=== PATIENT | female | born 1965 | race Caucasian/White ===

== ENCOUNTER 2023-09-15 12:07 | Day surgery (SDC) | payer OTHER ==
[2023-09-15] MEDS ORDERED: Depo-Medrol 40 MG/ML IM ONE (12:08)
[2023-09-15] MEDS ORDERED: BUPIVACAINE 0.5% VIAL IJ ONE (12:08)
[2023-09-15] MEDS ORDERED: Lactated Ringers 1,000 ML IV ONE (13:12)
[2023-09-15] MEDS ORDERED: DIPRIVAN 200 MG/20 ML IV ONE (13:53)
--- NOTE | 2023-09-15 14:58 | XRAY ---
Indication: Bilateral SI joint injection. Intraoperative fluoroscopy provided for 16 seconds. 3 digital spot images submitted for interpretation demonstrates posterior needle tips projecting over the expected left and right SI joint. Small amount of contrast injected for needle tip placement. Correlate with intraoperative findings/report.
--- NOTE | 2023-09-15 15:24 | XRAY ---
16 seconds of fluoroscopy was used in surgery for a bilateral sacroiliac joint injection.
== END 2023-09-15 14:15 | disposition home or self-care (01) ==
LOC: SDC-PAIN 12:07
PROVIDERS: ATTEND Psychiatry & Neurology Pain Medicine
DX: M46.1 Sacroiliitis, not elsewhere classified (principal)
CPT/HCPCS: 01992; 27096; 72202; 77002; G0260; J1010; J2704; Q9966

== ENCOUNTER 2023-10-27 12:18 | Day surgery (SDC) | payer OTHER ==
[2023-10-27] MEDS ORDERED: Xylocaine-Mpf 2% 5 Ml Vial IJ ONE (12:19)
[2023-10-27] MEDS ORDERED: DIPRIVAN 200 MG/20 ML IV ONE (14:16)
[2023-10-27] MEDS ORDERED: Lactated Ringers 1,000 ML IV ONE (14:57)
--- NOTE | 2023-10-27 15:23 | XRAY ---
Indication: Bilateral L4-S1 MBB. Intraoperative fluoroscopy provided for 13 seconds. Single digital spot image submitted for interpretation demonstrates posterior needle tips projecting over the expected left and right L4-S1 nerve roots. Correlate with intraoperative findings/report.
--- NOTE | 2023-10-27 15:25 | XRAY ---
13 seconds of fluoroscopy was used in surgery for a bilateral L4-S1 MBB.
== END 2023-10-27 14:44 | disposition home or self-care (01) ==
LOC: SDC-PAIN 12:18
PROVIDERS: ATTEND Psychiatry & Neurology Pain Medicine
DX: M47.816 Spondylosis without myelopathy or radiculopathy, lumbar region (principal)
CPT/HCPCS: 64493; 64494; 72020; 77002; J2704

== ENCOUNTER 2023-12-08 12:18 | Day surgery (SDC) | payer OTHER ==
[2023-12-08] MEDS ORDERED: BUPIVACAINE 0.5% VIAL IJ ONE (12:19)
[2023-12-08] MEDS ORDERED: DIPRIVAN 200 MG/20 ML IV ONE (14:15)
[2023-12-08] MEDS ORDERED: Lactated Ringers 1,000 ML IV ONE (15:02)
--- NOTE | 2023-12-08 15:08 | XRAY ---
Indication: Bilateral L4-S1 MBB. Intraoperative fluoroscopy provided for 10 seconds. Single digital spot image submitted for interpretation demonstrates posterior needle tips projecting over the expected left and right L4-S1 nerve roots. Correlate with intraoperative findings/report.
--- NOTE | 2023-12-08 15:14 | XRAY ---
10 seconds of fluoroscopy was used in surgery for a bilateral L4-S1 MBB.
== END 2023-12-08 14:41 | disposition home or self-care (01) ==
LOC: SDC-PAIN 12:18
PROVIDERS: ATTEND Psychiatry & Neurology Pain Medicine
DX: M47.816 Spondylosis without myelopathy or radiculopathy, lumbar region (principal)
CPT/HCPCS: 64493; 64494; 72020; 77002; J2704

== ENCOUNTER 2023-12-29 07:56 | Day surgery (SDC) | payer OTHER ==
[2023-12-29] MEDS ORDERED: BUPIVACAINE 0.5% VIAL IJ ONE (07:57)
[2023-12-29] MEDS ORDERED: Depo-Medrol 40 MG/ML IM ONE (07:57)
[2023-12-29] MEDS ORDERED: LIDOCAINE HCL 1% 50 MG/5 ML VL PF IJ ONE (07:57)
[2023-12-29] MEDS ORDERED: Lactated Ringers 1,000 ML IV ONE (09:30)
[2023-12-29] MEDS ORDERED: DIPRIVAN 200 MG/20 ML IV ONE (10:02)
--- NOTE | 2023-12-29 11:48 | XRAY ---
Indication: Right L4-S1 RFA. Intraoperative fluoroscopy provided for 22 seconds. 4 digital spot images submitted for interpretation demonstrates posterior needle tips projecting over the expected right L4-S1 nerve roots. Correlate with intraoperative findings/report.
--- NOTE | 2023-12-29 12:04 | XRAY ---
22 seconds of fluoroscopy was used in surgery for a right L4-S1 RFA.
== END 2023-12-29 10:30 ==
LOC: SDC-PAIN 07:56 → EDSTATUS 15:59
PROVIDERS: ATTEND Psychiatry & Neurology Pain Medicine
DX: M47.816 Spondylosis without myelopathy or radiculopathy, lumbar region (principal)
CPT/HCPCS: 64635; 64636; 72100; 77002; J2001; J2704

== ENCOUNTER 2024-01-05 14:12 | Day surgery (SDC) | payer OTHER ==
[2024-01-05] MEDS ORDERED: BUPIVACAINE 0.5% VIAL IJ ONE (14:13)
[2024-01-05] MEDS ORDERED: LIDOCAINE HCL 1% 50 MG/5 ML VL PF IJ ONE (14:13)
[2024-01-05] MEDS ORDERED: Depo-Medrol 40 MG/ML IM ONE (14:13)
[2024-01-05] MEDS ORDERED: Lactated Ringers 1,000 ML IV ONE (15:45)
[2024-01-05] MEDS ORDERED: DIPRIVAN 200 MG/20 ML IV ONE (15:48)
--- NOTE | 2024-01-05 17:10 | XRAY ---
Indication: Left L4-S1 RFA. Intraoperative fluoroscopy provided for 21 seconds. 3 digital spot images submitted for interpretation demonstrates posterior needle tips projecting over the expected left L4-S1 nerve roots. Correlate with intraoperative findings/report.
--- NOTE | 2024-01-05 17:14 | XRAY ---
21 seconds of fluoroscopy was used in surgery for a left L4-S1 RFA.
== END 2024-01-05 16:20 | disposition home or self-care (01) ==
LOC: SDC-PAIN 14:12
PROVIDERS: ATTEND Psychiatry & Neurology Pain Medicine
DX: M47.816 Spondylosis without myelopathy or radiculopathy, lumbar region (principal)
CPT/HCPCS: 64635; 64636; 72100; 77002; J2001; J2704

== ENCOUNTER 2024-02-23 08:46 | Day surgery (SDC) | payer OTHER ==
[2024-02-23] MEDS ORDERED: BUPIVACAINE 0.5% VIAL IJ ONE (08:47)
[2024-02-23] MEDS ORDERED: Depo-Medrol 40 MG/ML IM ONE (08:47)
[2024-02-23] MEDS ORDERED: DIPRIVAN 200 MG/20 ML IV ONE (10:37)
--- NOTE | 2024-02-23 11:56 | XRAY ---
Indication: Bilateral SI joint injection. Intraoperative fluoroscopy provided for 21 seconds. 5 digital spot image submitted for interpretation demonstrates posterior needle tips projecting over the left and right SI joints. Small amount of contrast injected for needle tip placement. Correlate with intraoperative findings/report.
--- NOTE | 2024-02-23 12:10 | XRAY ---
21 seconds of fluoroscopy was used in surgery for a bilateral sacroiliac joint injection.
== END 2024-02-23 11:05 | disposition home or self-care (01) ==
LOC: SDC-PAIN 08:46
PROVIDERS: ATTEND Psychiatry & Neurology Pain Medicine
DX: M46.1 Sacroiliitis, not elsewhere classified (principal)
CPT/HCPCS: 01992; 27096; 72202; 77002; G0260; J2704; Q9966